=== PATIENT | female | born 1995 | race Caucasian/White ===

== ENCOUNTER → 2016-06-17 01:43 | Observation (INO) ==
[2016-06-17 00:22] LABS: Bilirubin,Urine Negative (Negative); Blood,Urine Negative (Negative); Clarity,Urine Cloudy (Clear); Color,Urine Yellow (Yellow); Glucose,Urine (UA) Normal (Normal); Ketones,Urine Negative (Negative); Leukocyte Esterase,Urine Moderate (Negative); Nitrite,Urine Negative (Negative); PH,Urine 6.5 pH Units (5.0-8.0); Protein,Urine 30 mg/dL (Neg-Trace); Specific Gravity,Urine 1.018 (1.010-1.025); Urobilinogen,Urine Normal (Normal)
[2016-06-17 00:25] LABS: Hyaline Casts,Urine None Seen per lpf (None-Few); RBC,Urine 0-3 per hpf (0-3); Squamous Epithelial Cell,Urine Many per lpf (None-Few); WBC,Urine 30-50 per hpf (0-3)
[2016-06-17 00:34] LABS: Bacteria,Urine Many per hpf (None-Few)
--- NOTE | 2016-06-22 16:48 | OB Labor Progress Note ---
Date of Encounter: 06/17/16 Time of Encounter: 01:25 Labor Progress Note - Plan Plan: Arely is a 21 y/o that was seen on labor and delivery as a labor eval. She was evaluated and found not to be in labor. ok for discharge.
== END | disposition home or self-care (01) ==
LOC: 1NENULAB
PROVIDERS: ADMIT Student in an Organized Health Care Education/Training Program; ATTEND Student in an Organized Health Care Education/Training Program

== ENCOUNTER → 2016-07-10 14:21 | Observation (INO) ==
--- NOTE | 2016-07-10 19:49 | OB/GYN Progress Note ---
Date of Encounter: 07/10/16 Time of Encounter: 14:00 - Assessment and Plan (1) 39 weeks gestation of Status: Chronic (2) False labor after 37 completed weeks of gestation Status: Acute Patient was seen and evaluated by RN and discharged home not in labor with no cervical change. Objective - Vital Signs Vital Signs: Intake and Output 07/10/16 07/10/16 07/10/16 07:59 15:59 23:59 Other: Weight 75 kg Patient Weight 07/10/16 23:59 Weight 75 kg
== END | disposition home or self-care (01) ==
LOC: 1NENULAB
PROVIDERS: ADMIT Obstetrics & Gynecology; ATTEND Obstetrics & Gynecology

== ENCOUNTER 2016-07-16 06:05 | Inpatient (IN) ==
[2016-07-16] MEDS ORDERED: Lidocaine -MPF 2% 5 ML VIAL INFILT ONE (06:35)
[2016-07-16] MEDS ORDERED: Ondansetron 4 MG/2 ML VIAL IVP PRN (06:37)
[2016-07-16] MEDS ORDERED: Metoclopramide 10 MG/2 ML VIAL IVP PRN (06:37)
[2016-07-16] MEDS ORDERED: Naloxone 0.4 MG/ML INJ IVP PRN (06:37)
[2016-07-16] MEDS ORDERED: Famotidine 20 MG/2 ML VIAL IVP PRN (06:37)
[2016-07-16] MEDS ORDERED: Ringers Solution, Lactated 1,000 ML IVC SCH (06:45)
[2016-07-16 06:46] LABS: Basophils % 0.2 %; Hemoglobin 10.6 g/dL (11.5-15.4); Immature Granulocytes % 0.7 % (0-4); Lymphocytes # 2.1 K/mcL (0.6-4.6); Lymphocytes % 19.5 %; Mean Corpuscular HGB Conc 32.1 g/dL (31.6-35.5); Mean Corpuscular Hemoglobin 27.2 pg (28.0-33.3); Mean Corpuscular Volume 84.8 fL (83.0-100.0); Mean Platelet Volume 12.6 fL (9.4-12.4); Monocytes # 0.8 K/mcL (0.0-1.3); Platelet Count 228 K/mcL (140-400); Red Blood Count 3.89 M/mcL (3.82-4.97); Red Cell Distribution Width 15.7 % (11.5-14.5); Segmented Neutrophils % 72.6 %
--- NOTE | 2016-07-16 06:51 | Anesthesia Evaluation PreOp ---
Date of Encounter: 07/16/16 Time of Encounter: 06:46 - Past History Planned Operation: vaginal del, Induction Cardiac History: Denies any Significant Hx Pulmonary History: Denies Any Significant HX PROGRAM ELIGIBILITY SPECIALIST History: Denies Any Significant HX Other Medical History: Denies Any Significant HX Anesthesia History: No Prior Anesthetic Complications, Past Anesthesia ( previous epidural no comp..) Alcohol Use: none Drug use: none Medications and Allergies Prenatl Vit6/Iron/FA/B12/Ca/D3 [Mteryti Combo Pack] 1 tab PO DAILY 07/10/16 [ History] Allergies No Known Allergies Allergy (Verified 07/16/16 06:10) Anesthesia Results - Labs 07/16/16 06:25 Anesthesia Exam - HEENT Pupil (Motor): Pupils equal Mallampati: II Teeth: Normal Oral Opening: Greater than 3 - PROGRAM ELIGIBILITY SPECIALIST LOC: Oriented PROGRAM ELIGIBILITY SPECIALIST Motor: Normal RUE, Normal LUE, Normal RLE, Normal LLE, Normal Face PROGRAM ELIGIBILITY SPECIALIST Sensory: Normal: RUE, LUE, RLE, LLE, Face - Cardiac Rhythm: Regular Murmur: None - Pulmonary Breath Sounds: bilateral Clear Respiratory Effort: Symmetrical Anesthesia Assess/Plan ASA Score: 2 Modified [place] Scale for Level of Consciousness: Cooperative, oriented, and tranquil Anesthetic Plan: General, Regional Monitoring Plan: Standard Monitors
[2016-07-16] MEDS ORDERED: Epidural Premix (fent/bupiv) 110 ML EP ONE (06:56)
--- NOTE | 2016-07-16 07:41 | OB/GYN History & Physical ---
Date of Encounter: 07/16/16 Time of Encounter: 07:41 Assessment and Plan (1) 40 weeks gestation of Current visit: Yes Status: Acute Patient is a 21yo at 40 weeks + 3 days who presents for scheduled induction of labor. At previous office visit, she was 3-4cm, 60-70%, -1 station. Will give cytotec and continue to monitor progression of labor. History of Present Illness Chief complaint: 40 weeks gestation here for scheduled induction HPI: Ms. Maharaj is a 21 year old female at 40 weeks + 3 days who presents today for a scheduled induction of labor. Patient denies any fluid loss or contractions but reports good movements. She reports no complications with this . Denies ZULUAGA, changes in vision, chest pain, SOB, or changes in bowel or bladder function. Her first child was a term vaginal delivery. She is blood type B+, rubella immune and GBS negative. Past Med Surg Social Fam HX - Past Medical History Medical history: no medical history Psychiatric history: no psych history - Past Surgical History Surgical History: no surgical history - Social History Smoking Status: Never smoker Smokeless Tobacco Status: No Alcohol use: none Drug use: none - Family History Mother Family Member Ethnicity: Non- Living Status: Still Living Hx Family Cardiac Disorders: Yes ([place], HTN) Obstetrical History - Pregnancies : 2 Para: 1 Term: 1 : 0 Ab's: 0 Livin Medications and Allergies Prenatl Vit6/Iron/FA/B12/Ca/D3 [Mteryti Combo Pack] 1 tab PO DAILY 07/10/16 [ History] Allergies No Known Allergies Allergy (Verified 07/16/16 06:10) Review of System OB - Constitutional Constitutional ROS IM: no chills, no fever(s) - Cardiovascular Cardiovascular: no chest pain, no palpitations - Respiratory Respiratory: no cough, no dyspnea, no wheezing - Gastrointestinal Gastrointestinal: no constipation, no diarrhea, no nausea, no vomiting - Genitourinary Genitourinary: no urinary incontinence, no urinary urgency, no vaginal discharge , no vaginal odor - Neurological Nerological: no headache(s) Exam - Constitutional Constitutional: well developed, well nourished, no acute distress, average body habitus - HEENT HEENT: Normocephaly, Mucus Membranes Moist - Lungs Respiratory exam: CTAB - Cardiovascular Cardiovascular exam: RRR - Abdomen Abdomen: Present: bowel sounds normal, gravid - Extremities Extremities exam: normal inspection - Cervix Dilation: 3 (per office visit) Effacement: 60 (per office visit) Station: -1 Results Result Diagrams: 07/16/16 06:25 Abnormal lab results Hgb 10.6 g/dL (11.5-15.4) L 07/16/16 06:25 Hct 33.0 % (35.3-44.9) L 07/16/16 06:25 MCH 27.2 pg (28.0-33.3) L 07/16/16 06:25 RDW 15.7 % (11.5-14.5) H 07/16/16 06:25 MPV 12.6 fL (9.4-12.4) H 07/16/16 06:25 All other labs normal. - VTE Reasons for not Prescribing Prophylaxis: Treatment not Indicated - Low risk for VTE - Attending Attestation I examined this patient and my medical decision-making was reviewed with the DIRECTOR OF INSTRUCTIONAL TECHNOLOGY/PA/Advanced Practice Nurse/Resident Physician. I agree with the documented findings, disposition and treatment plan as described except to the extent set forth below.
[2016-07-16] MEDS ORDERED: miSOPROStol 25 MCG TABLET VG SCH (08:00)
--- NOTE | 2016-07-16 12:18 | OB Labor Progress Note ---
Date of Encounter: 07/16/16 Time of Encounter: 12:15 Labor Progress Note - Subjective Subjective: Comfortable and starting to feel contractions - Vital Signs Vital Signs: afeb, VSS - Cervix Cervix: 5/80/-1, vtx - Heart Tones Heart Tones: 120s baseline, CAT1 - [place]: 2-6' after 25 mcgs po cytotec 4 hours prior - Interventions Interventions: 40w3d IUP induction of labor - Plan Plan: Amniotomy with IUPC, mod clear fluid seen. IUPC placed w/o difficulty. Cont induction. Augment with pitocin if indicated
[2016-07-16] MEDS ORDERED: Oxytocin 20 units/ LR 1000 mL 20 UNIT/1,000 ML BAG IVC ONE ×2 (12:42→19:48)
[2016-07-16] MEDS ORDERED: Oxytocin 20 units/ LR 1000 mL 20 UNIT/1,000 ML BAG IV SCH ×2 (12:45→19:48)
[2016-07-16] MEDS ORDERED: *HR* FentaNYL (PF) 100 MCG/2 ML VIAL ONE (13:24)
[2016-07-16] MEDS ORDERED: Bupivacaine-MPF 0.25% 10 ML VIAL ONE (13:24)
[2016-07-16] MEDS ORDERED: *HR* FentaNYL (PF) 100 MCG/2 ML VIAL EP ONE (13:58)
[2016-07-16] MEDS ORDERED: Bupivacaine-MPF 0.25% 10 ML VIAL EP ONE (13:58)
[2016-07-16] MEDS ORDERED: EPHEDrine 50 MG/ML VIAL IVP PRN (13:58)
[2016-07-16] MEDS ORDERED: Epidural Premix (fent/bupiv) 110 ML EP SCH (14:00)
--- NOTE | 2016-07-16 14:01 | Anesthesia Procedures ---
Date of Encounter: 07/16/16 Time of Encounter: 13:28 Procedures: Anesthesia - Epidural/Spinal Patient ID/Chart reviewed: Yes Patient examined: Yes OB Eval: Gestational age: 40.3 OB Eval: : 2 OB Eval: Hx Para: 1 OB Eval: Dilated at (cm): 4 OB Eval: Contractions: Non-stressed pattern Consent Obtained: Yes Supplemental Oxygen: None/Room Air Site Prep: Aseptic Technique, Sterile prep and drape, Povidone-Iodine 1% Patient position: upright Local Anesthetic: Lidocaine 1% Amount of Local Anesthetic used: 3 Touhy Needle Gauge: 18 Touhy Needle Depth (cm): 6 Catheter Depth at Skin (cm): 15 Test Dose (1.5% Lido + Epi): Volume given (mls): 3 Test Dose Result: Negative Loading Dose: 0.25% Marcaine (mls): 10 Loading Dose: Fentanyl (mcg): 100 Loading Dose Administered: Thru Catheter Infusion Med: 0.125% Bupivacaine w/ 2 mcg/ml Fentanyl Infusion Rate (mls/hr): [address]: Tegaderm, Tape Interspace Used: L4-L5 Loss of Resistance (GREGORIO): Yes Blood: No CSF: No Paresthesia: No Procedure: HAYDEN placed in upright position 1st pass without any immediate noted complications. VSS and FHT stable throughout. Vitals + FHT's: 1328 BP 139/96 P 76 R 16 1355 BP 116/60 P 95 R 16 FHT 130's
--- NOTE | 2016-07-16 14:49 | OB Labor Progress Note ---
Date of Encounter: 07/16/16 Time of Encounter: 14:47 Labor Progress Note - Subjective Subjective: Patient comfortable after placement of epidural. I examined this patient and my medical decision-making was reviewed with the DIRECTOR DENTAL SERVICES/PA/Advanced Practice Nurse/Resident Physician. I agree with the documented findings, disposition and treatment plan as described except to the extent set forth below. - Vital Signs Vital Signs: Vital signs within normal limits. - Cervix Cervix: 5cm 80% - Heart Tones Heart Tones: Category I heart tone tracing - Buchanan Buchanan: Contractions appropriate approximately 2-3 min apart - Interventions Interventions: Currently with pitocin going. - Plan Plan: Will continue to monitor progression of labor.
--- NOTE | 2016-07-16 16:59 | OB/GYN Procedure Note ---
Delivery - Delivery Date: 07/16/16 Provider: Hollie Robin Intrapartum events: none Delivery induction: misoprostol Delivery augmentation: rupture of membranes, pitocin Delivery monitor: external FHT, external uterine, internal uterine Anesthesia: epidural Estimated Blood Loss: 100 - (s) Infant A Infant Delivery Date: 07/16/16 Delivery Time: 16:42 Presentation: vertex Position: AYLA Route of delivery: Gender: Female Viability: Viable Pounds: 7 Ounces: 0 at 1 minute: 8 at 5 mins: 9 Shoulder Dystocia: not encountered Placenta: spontaneous, uterine exploration Cord: 3 umbilical vessels - Repair Episiotomy: none Laceration Description: Periurethral, Superficial - Complications Delivery complications: none Delivery comments: The patient complained pushing with epidural anesthesia with the spontaneous vaginal delivery an AYLA position of a vigorous female infant with Apgars of 8 at 1 minute and 9 at 5 minutes. Infant placed on maternal abdomen. Cord clamped and cut after pulsation ceased. Placenta delivered spontaneous and intact. Three-vessel cord noted. Uterus was explored and no retained products of conception identified. Superficial periurethral lacerations were hemostatic and not repaired. Estimated blood loss 100 mL. Complications none. Both mother and are recovering in stable condition in the LDR - Disposition Mom disposition: stable in LDR disposition: stable in LDR
[2016-07-16] MEDS ORDERED: Acetaminophen 325 MG TABLET PO PRN (19:48)
[2016-07-16] MEDS: Ibuprofen 600 MG TABLET PO PRN (20:48)
[2016-07-17] MEDS: Ibuprofen 600 MG TABLET PO PRN (02:52)
[2016-07-17 04:45] LABS: Basophils % 0.2 %; Eosinophils % 0.1 %; Hematocrit 25.4 % (35.3-44.9); Immature Granulocytes % 0.7 % (0-4); Lymphocytes # 1.9 K/mcL (0.6-4.6); Lymphocytes % 15.7 %; Mean Corpuscular HGB Conc 31.5 g/dL (31.6-35.5); Mean Corpuscular Hemoglobin 27.5 pg (28.0-33.3); Mean Corpuscular Volume 87.3 fL (83.0-100.0); Mean Platelet Volume 12.7 fL (9.4-12.4); Neutrophils # 9.1 K/mcL (1.6-8.9); Platelet Count 183 K/mcL (140-400); Red Blood Count 2.91 M/mcL (3.82-4.97); Red Cell Distribution Width 15.7 % (11.5-14.5); Segmented Neutrophils % 75.3 %
[2016-07-17] MEDS ORDERED: Prenatal Vit/FA 1 EACH TABLET PO SCH (09:00)
--- NOTE | 2016-07-17 11:18 | Discharge Summary ---
Date of Encounter: 07/17/16 Time of Encounter: 11:17 - Discharge Medications Prescriptions: Ibuprofen [Motrin] 600 mg PO Q6HR PRN #60 tab PRN Reason: Pain Home Medications: Prenatl Vit6/Iron/FA/B12/Ca/D3 [Mteryti Combo Pack] 1 tab PO DAILY 07/10/16 [ History] Ibuprofen [Motrin] 600 mg PO Q6HR PRN #60 tab 07/17/16 [Rx] Allergies/Adverse Reactions: Allergies No Known Allergies Allergy (Verified 07/16/16 06:10) Data Procedures and tests throughout hospitalization: Laboratory Tests 07/16/16 07/17/16 06:25 04:07 WBC 11.0 12.1 H RBC 3.89 2.91 L Hgb 10.6 L 8.0 L D Hct 33.0 L 25.4 L MCV 84.8 87.3 MCH 27.2 L 27.5 L MCHC 32.1 31.5 L RDW 15.7 H 15.7 H Plt Count 228 183 MPV 12.6 H 12.7 H Immature Gran % 0.7 0.7 Seg Neutrophils % 72.6 75.3 Lymphocytes % 19.5 15.7 Monocytes % 7.0 8.0 Eosinophils % 0.0 0.1 Basophils % 0.2 0.2 Neutrophils # 8.0 9.1 H Lymphocytes # 2.1 1.9 Monocytes # 0.8 1.0 Eosinophils # 0.0 0.0 Basophils # 0.0 0.0 Labs on day of discharge: Labs from last 24 hours 07/17/16 04:07 WBC 12.1 H RBC 2.91 L Hgb 8.0 L D Hct 25.4 L MCV 87.3 MCH 27.5 L MCHC 31.5 L RDW 15.7 H Plt Count 183 MPV 12.7 H Immature Gran % 0.7 Seg Neutrophils % 75.3 Lymphocytes % 15.7 Monocytes % 8.0 Eosinophils % 0.1 Basophils % 0.2 Neutrophils # 9.1 H Lymphocytes # 1.9 Monocytes # 1.0 Eosinophils # 0.0 Basophils # 0.0 Date of admission: 07/16/16 06:05 Consults: 07/16/16 19:48 Consult to [employer] [CONS] Routine Comment: Vaginal delivery, consult needed - Patient Status Disposition: Home, Self-Care Condition: Good Functional capacity at discharge: independent ambulation Overall status at discharge: patient is progressing back to baseline - Discharge Instructions Hospital Course VP PRODUCTION Time Attestation: Total time spent providing and/or coordinating discharge services: Exam - Constitutional Vitals: Temp Pulse Resp BP Pulse Ox 98 F 80 20 103/70 98 07/17/16 07:55 07/17/16 07:55 07/17/16 07:55 07/17/16 08:02 07/17/16 07:55 General appearance IM: A&O X 3 - Respiratory Respiratory exam: Present: CTAB - Cardiovascular Cardiovascular exam IM: Present: RRR - GI/Abdominal GI/Abdominal exam IM: normal bowel sounds - External exam: normal external exam Uterus Position: 3 Fingers Below Umbilicus - VTE Reasons for not Prescribing Prophylaxis: Treatment not Indicated - Low risk for VTE
[2016-07-17 12:06] VITALS: BP 134/78
== END 2016-07-17 17:10 | disposition home or self-care (01) | DRG 775 ==
LOC: 1NENULAB 06:05 → 1NENUOBS 19:38
PROVIDERS: ADMIT Student in an Organized Health Care Education/Training Program; ATTEND Student in an Organized Health Care Education/Training Program